=== PATIENT | female | born 1960 | race Caucasian/White ===

== ENCOUNTER 2019-03-04 16:21 | Emergency (ER) | payer MEDICAID, OTHER ==
--- NOTE | 2019-03-04 16:37 | ER Document Report ---
ED Medical Screen (RME) - General Chief Complaint: Leg Pain Stated Complaint: RIGHT LEG PAIN AND SWELLING Time Seen by Provider: 03/04/19 16:25 Primary Care Provider: IGOR ALEMAN [Primary Care Provider] - Follow up as needed Mode of Arrival: Wheelchair Information source: Patient Notes: 58-year-old diabetic female with history of phlebitis presents emergency department with right lower leg erythema and pain with discoloration to her right great toe. She reports pain to the leg but cannot feel her toe. Reports symptoms for possibly 2 weeks her and her are debating. Denies fever vomiting diarrhea. Right toes are cooler than left foot discoloration. I have greeted and performed a rapid initial assessment of this patient. A comprehensive ED assessment and evaluation of the patient, analysis of test results and completion of the medical decision making process will be conducted by additional ED providers. Dictation of this chart was performed using voice recognition software; therefore, there may be some unintended grammatical errors. TRAVEL OUTSIDE OF THE [place] IN LAST 30 DAYS: No - Related Data Allergies/Adverse Reactions: adhesive [Adhesive] Allergy (Mild, Verified 03/04/19 16:26) rash Past Medical History Neurological Medical History: Denies: Hx Seizures Endocrine Medical History: Reports: Hx Diabetes Mellitus Type 2 GI Medical History: Reports: Hx Gastroesophageal Reflux Disease Past Surgical History: Denies: Hx Hysterectomy - Immunizations Hx Diphtheria, Pertussis, Tetanus Vaccination: No Doctor's Discharge - Discharge Referrals: IGOR ALEMAN [Primary Care Provider] - Follow up as needed
[2019-03-04 17:15] LABS: ALBUMIN 3.8 g/dL (3.5-5.0); ALKALINE PHOSPHATASE 119 U/L (38-126); ANION GAP 14 (5-19); ASPARTATE AMINO TRANSFERASE 32 U/L (14-36); BILIRUBIN,DIRECT 0.2 mg/dL (0.0-0.4); BILIRUBIN,TOTAL 0.4 mg/dL (0.2-1.3); BLOOD UREA NITROGEN 18 mg/dL (7-20); CALCIUM 9.5 mg/dL (8.4-10.2); CARBON DIOXIDE 24 mmol/L (22-30); CHLORIDE 100 mmol/L (98-107); GLUCOSE 229 mg/dL (75-110); POTASSIUM 4.4 mmol/L (3.6-5.0); TOTAL PROTEIN 7.1 g/dL (6.3-8.2)
[2019-03-04 17:22] LABS: HEMATOCRIT 45.4 % (36.0-47.0); HEMOGLOBIN 15.3 g/dL (12.0-15.5); MEAN CORPUSCULAR HEMOGLOBIN 29.7 pg (27.0-33.4); MEAN CORPUSCULAR HGB CONC 33.6 g/dL (32.0-36.0); MEAN CORPUSCULAR VOLUME 88 fl (80-97); PLATELET COUNT 345 10^3/uL (150-450); RED BLOOD COUNT 5.14 10^6/uL (3.72-5.28); RED CELL DISTRIBUTION WIDTH 14.7 % (11.5-14.0); WHITE BLOOD COUNT 25.6 10^3/uL (4.0-10.5)
[2019-03-04 17:45] LABS: ABSOLUTE LYMPHOCYTES# (MANUAL) 4.4 10^3/uL (0.5-4.7); ABSOLUTE MONOCYTES # (MANUAL) 0.5 10^3/uL (0.1-1.4); BASOPHILS % (MANUAL) 0 % (0-2); EOSINOPHILS % (MANUAL) 2 % (0-6); LYMPHOCYTES % (MANUAL) 17 % (13-45); MONOCYTES % (MANUAL) 2 % (3-13); SEGMENTED NEUTROPHILS % (MAN) 79 % (42-78); TOTAL CELLS COUNTED 100
[2019-03-04 17:46] LABS: ANISOCYTOSIS SLIGHT; PLATELET COMMENT ADEQUATE; TOXIC GRANULATION 1+
[2019-03-04] MEDS ORDERED: ACETAMINOPHEN WITH CODEINE #3 TABLET PO ONE (18:01)
--- NOTE | 2019-03-04 18:16 | RADIOLOGY REPORT (SQ) ---
EXAM DESCRIPTION: FOOT RIGHT COMPLETE COMPLETED DATE/TIME: 03/04/2019 5:56 pm REASON FOR STUDY: pain discoloration hx dm COMPARISON: None. EXAM PARAMETERS: NUMBER OF VIEWS: Three views. TECHNIQUE: AP, lateral and oblique radiographic images acquired of the right foot. LIMITATIONS: None. FINDINGS: MINERALIZATION: Normal. BONES: No acute fracture or dislocation. No worrisome bone lesions. JOINTS: No effusion. SOFT TISSUES: Mild soft tissue swelling. No radiopaque foreign body. OTHER: No other significant finding. IMPRESSION: NO FRACTURE. TECHNICAL DOCUMENTATION: JOB ID: [id number] [place]-72 2010 [employer]- All Rights Reserved Reading location - IP/workstation name: I Had Cancer
--- NOTE | 2019-03-04 18:35 | XCELERA REPORT ---
[address] [address] Lower Extremity Arterial Evaluation Name: JONNATHAN NAJERA Age: 58 yrs Gender: Female : 1960 Patient Status: Emergency Patient Location: ER Study Date: 03/04/2019 05:22 PM Procedure: A color flow and duplex scan of the lower extremity arteries was performed on the right with velocity and waveform anaylsis. Reason For Study: discoloration to right great toe Ordering Physician: HAILY FAGAN Performed By: Sammie May Measurements and Calculations Right Left STRUCTURAL ENGINEERING TECHNICIAN PSV 121.9 cm/sec Prox PFA PSV -100.7 cm/sec Prox SFA PSV 116.9 cm/sec Mid SFA PSV -127.8 cm/sec Dist SFA PSV -57.8 cm/sec Prox Pop A PSV 45.0 cm/sec Prox ARTIE PSV 48.8 cm/sec Dist ARTIE PSV 23.1 75.5 cm/sec Dist SUBMARINE OPERATOR PSV 18.6 cm/sec Raji Pedis PSV -14.6 -29.4 cm/sec Right Side Arterial Evaluation Normal velocity and triphasic waveforms noted from the Common Femoral artery to Femoral . Biphasic with normal velocity in the Popliteal. Minimal flow, low velocity, spectrally broadened findings in the anterior and Posterior Tibial distally. Occluded Peroneal artery. Ankle Brachial index not obtained. Left Side Arterial Evaluation Biphasic signal with low normal velocity in the Anterior Tibial. Very limited, "spot" study. Critical Findings Severe right leg arterial disease discussed with Dr Chen. Interpretation Summary Severe hemodynamically significant lesions in the right lower extremity only, on duplex imaging, at rest. Findings compatible with tissue threatening disease. On the left, very limited study suggestion of moderate disease. : HAILY FAGAN > Marquise Pryor
--- NOTE | 2019-03-04 18:36 | XCELERA REPORT ---
[address] [place] [facility] [address] Lower Extremity Venous Evaluation Procedure: Color flow and duplex imaging of the veins of the right lower extremity as well as the left Common Femoral vein. Right Sided Venous Evaluation Normal vessel filling wall to wall, compression and augmentation as well as Colour flow down to the infrageniculate veins. Left Sided Venous Evaluation The left common femoral vein is fully compressible. Spontaneous and phasic flow is present in the left common femoral vein. Interpretation Summary No duplex evidence of DVT or obstruction in the right lower extremity nor in the left Common Femoral vein. Name: JONNATHAN NAJERA Age: 58 yrs Gender: Female : 1960 Patient Status: Emergency Patient Location: ER Study Date: 03/04/2019 05:08 PM Reason For Study: erythema pain discoloration to right LL, Toe Ordering Physician: HAILY FAGAN Performed By: Sammie May : HAILY FAGAN > Marquise Pryor
--- NOTE | 2019-03-04 18:37 | ER Document Report ---
Entered by ANIKET IRVIN SCRIBE 03/04/19 1741 Acting as scribe for:ERICA BARTHOLOMEW IV, MD ED General - General Chief Complaint: Foot Pain Stated Complaint: RIGHT LEG PAIN AND SWELLING Time Seen by Provider: 03/04/19 16:25 Primary Care Provider: [facility] IGOR LI [NO LOCAL MD] - Follow up as needed Mode of Arrival: Wheelchair Information source: Patient Notes: This 58-year-old female patient presents to the emergency department today with complaints of right foot discoloration. Patient has known diabetes as well as peripheral vascular disease. Patient states that for about the last week she has noticed that her right foot seems to be more of a blue/purple color. Patient states that she has had decreased sensation in the right foot for the last week as well as numb toes. TRAVEL OUTSIDE OF THE [place] IN LAST 30 DAYS: No - Related Data Allergies/Adverse Reactions: adhesive [Adhesive] Allergy (Mild, Verified 03/04/19 16:26) rash Past Medical History - General Information source: Patient - Social History Smoking Status: Current Every Day Smoker Cigarette use (# per day): Yes Chew tobacco use (# tins/day): No Frequency of alcohol use: None Drug Abuse: None Lives with: Family Family History: Reviewed & Not Pertinent Patient has suicidal ideation: No Patient has homicidal ideation: No - Past Medical History Cardiac Medical History: Reports: Hx Peripheral Vascular Disease Endocrine Medical History: Reports: Hx Diabetes Mellitus Type 2 GI Medical History: Reports: Hx Gastroesophageal Reflux Disease Past Surgical History: Denies: Hx Hysterectomy - Immunizations Hx Diphtheria, Pertussis, Tetanus Vaccination: No Hx Pneumococcal Vaccination: 01/03/13 Review of Systems - Review of Systems Constitutional: No symptoms reported EENT: No symptoms reported Cardiovascular: No symptoms reported Respiratory: No symptoms reported Gastrointestinal: No symptoms reported Genitourinary: No symptoms reported Female Genitourinary: No symptoms reported Musculoskeletal: No symptoms reported Skin: No symptoms reported Hematologic/Lymphatic: No symptoms reported Neurological/Psychological: See HPI, Numbness, Tingling -: Yes All other systems reviewed and negative Physical Exam - Vital signs Vitals: Temp Pulse Resp BP Pulse Ox 98.1 F 118 H 16 138/72 H 97 03/04/19 16:26 03/04/19 16:26 03/04/19 16:26 03/04/19 16:26 03/04/19 16:26 - Notes Notes: Physical Exam: General: Alert, appears uncomfortable. HEENT: Normocephalic. Atraumatic. PERRL. Extraocular movements intact. Oropharynx clear. Neck: Supple. Non-tender. Respiratory: No respiratory distress. Clear and equal breath sounds bilaterally. Cardiovascular: Regular rate and rhythm. Abdominal: Normal Inspection. Non-tender. No distension. Normal Bowel Sounds. Back: No gross abnormalities. Extremities: Moves all four extremities. Upper extremities: Normal inspection. Normal ROM. Lower extremities: Right foot is tender to even light palpation. The foot is cool and blue in appearance. Capillary refill greater than 3 seconds distally. LLE is grossly unremarkable. Neurological: Normal cognition. AAOx4. Normal speech. Psychological: Normal affect. Normal Mood. Skin: See lower extremity exam Course - Re-evaluation Re-evalutation: 03/04/19 19:[address] Carpio, vascular surgeon at [facility]. He accepted the patient for transfer to his facility. He asked that the patient be given 150 mg of Plavix, 325 mg aspirin, and be started on a heparin drip. - Vital Signs Vital signs: Temp Pulse Resp BP Pulse Ox 98.1 F 118 H 16 138/72 H 97 03/04/19 16:26 03/04/19 16:26 03/04/19 16:26 03/04/19 16:26 03/04/19 16:26 - Laboratory Result Diagrams: 03/04/19 16:47 03/04/19 16:47 Laboratory results interpreted by me: 03/04/19 03/04/19 16:47 16:47 WBC 25.6 H RDW 14.7 H Seg Neuts % (Manual) 79 H Monocytes % (Manual) 2 L Abs Neuts (Manual) 20.2 H Glucose 229 H - Consults DR. CARPIO Time consulted: 19:15 Reason for consultation: 03/04/19 19:20 OCCLUDED RIGHT POPLITEAL ARTERY Discharge - Discharge Clinical Impression: Right popliteal artery occlusion Condition: Fair Disposition: [facility] [NO LOCAL MD] - Follow up as needed I personally performed the services described in the documentation, reviewed and edited the documentation which was dictated to the scribe in my presence, and it accurately records my words and actions.
[2019-03-04] MEDS ORDERED: ASPIRIN 325 MG TABLET PO ONE (19:10)
[2019-03-04] MEDS ORDERED: CLOPIDOGREL BISULFATE 300 MG TABLET PO ONE (19:10)
[2019-03-04] MEDS ORDERED: HEPARIN SOD (PORCINE) 1,000 UNIT/ML 10 ML VIAL IV ONE (19:11)
[2019-03-04] MEDS ORDERED: HEPARIN SODIUM,PORCINE/D5W 25,000 UNIT/250 ML RTUINJ IV PRN (19:15)
[2019-03-04] MEDS ORDERED: LORAZEPAM INJ 2 MG/1 ML VIAL IV ONE (19:58)
[2019-03-04 20:07] VITALS: BP 131/80
[2019-03-04 20:10] LABS: INTERNATIONAL RATION (INR) 1.05; PROTHROMBIN TIME 13.7 SEC (11.4-15.4)
[2019-03-04 20:11] LABS: PARTIAL THROMBOPLASTIN TIME 30.9 SEC (23.5-35.8)
== END 2019-03-04 20:15 | disposition short-term general hospital (02) ==
LOC: ER 16:21
DX: I77.1 Stricture of artery (principal); I73.9 Peripheral vascular disease, unspecified; M79.671 Pain in right foot; M79.89 Other specified soft tissue disorders; E11.9 Type 2 diabetes mellitus without complications; F17.210 Nicotine dependence, cigarettes, uncomplicated
CPT/HCPCS: 99285; 96374; 36415; 85025; 85610; 85730; 80053; 83605; 93971 ×2; 93926 ×2; 73630; J3490; J1644 ×2; J2060

== ENCOUNTER 2019-11-13 06:29 | Day surgery (SDC) | payer MEDICAID ==
[~2019-11-13 06:29] MED LIST: BUPIVACAINE HCL 0.75% INJ/PF (7.5 MG/1 ML) 10 ML SDV OS PRN; KETOROLAC TROMETHAMINE 0.45% 4 DROP/0.4 ML DROPERETTE OS PRN; LIDOCAINE 4% INJ/PF (40 MG/ML) 5 ML AMPUL OS PRN
[2019-11-13] MEDS ORDERED: FENTANYL CITRATE INJ/PF 100 MCG/2 ML AMPUL ONE (06:43)
[2019-11-13] MEDS ORDERED: MIDAZOLAM 2 MG/2 ML INJ ONE (06:43)
[2019-11-13] MEDS ORDERED: LIDOCAINE 1% INJ-PF (10 MG/ML) 30 ML SDV ONE (06:54)
[2019-11-13] MEDS ORDERED: CHONDR SU A NA/HYALUR INTRAOC KIT (SURGICARE) ONE (06:54)
[2019-11-13] MEDS ORDERED: EPINEPHRINE INJ/PF 1 MG/1 ML AMPULE ONE (06:54)
[2019-11-13] MEDS: TETRACAINE HCL 0.5% OPH SOLN 4 ML OS PRN ×2 (06:58→07:11)
[2019-11-13] MEDS: CYCLOPENTOLATE 0.2%/PHENYLEPHRINE 1% OPH SOLN 2 ML OS PRN ×3 (06:58→07:10)
[2019-11-13] MEDS: BESIFLOXACIN HCL 0.6% OPH SUSP 5 ML BOTTLE OS PRN ×4 (06:59→07:58)
[2019-11-13] MEDS: TROPICAMIDE 1% OPH SOLN 15 ML OS PRN ×3 (06:59→07:10)
[2019-11-13] MEDS: DORZOLAMIDE HCL 2%/TIMOLOL MALEAT 0.5% OPH SOLN 10 ML OS PRN ×2 (07:58)
--- NOTE | 2019-11-13 11:18 | Operative Report ---
Operative Report-[facility] Operative Report: DATE OF SURGERY: 11/13/2019 PREOPERATIVE DIAGNOSIS: CATARACT, LEFT EYE. POSTOPERATIVE DIAGNOSIS: CATARACT, LEFT EYE. PROCEDURE PERFORMED: PHACOEMULSIFICATION WITH POSTERIOR CHAMBER INTRAOCULAR LENS, LEFT EYE. Intraocular Lens Model : ZCBOO 23.0 Total Phaco Time: 3.6 CDE SURGEON: ALAINA ROSE MD ANESTHESIA: TOPICAL WITH MAC. INDICATIONS FOR SURGERY: Difficultly driving at night PROCEDURE: The patient was brought to the Operating Room and placed on the operative table. Following tetracaine drops, topical anesthesia was administered. This consisted of instrument wipe pledgets soaked in a solution of 4% Xylocaine mixed with 0.75% Marcaine in a 1:2 ratio. A 2 x 1 cm pledget was placed in the superior fornix. A 1 x 1 cm pledget was placed in the inferior fornix. The eye was patched shut for 5 minutes. The patch was removed. The eye was sterilely prepped and draped in the usual manner. Lid speculum was placed in the eye. The pledgets were removed. 4-0 black silk sutures were placed around the superior and the inferior rectus muscles to be used as traction. A conjunctival peritomy was made at the 10 o'clock position. Hemostasis was obtained with bipolar cautery. A posterior limbal groove was created using a crescent knife and dissected anteriorly towards the cornea. A sharp point blade was used to create a paracentesis site at the 2 o'clock position. 0.2 cc non preserved Lidocaine was injected into the anterior chamber. A 2.4 mm keratome was used to enter the anterior chamber through the groove. Viscoelastic was injected into the anterior chamber. An anterior capsulotomy was performed using Utrata forceps in a capsulorrhexis fashion. Hydrodissection and hydrodelineation were performed. Phacoemulsification was performed in [id number] technique. Following this, the I/A unit was used to remove residual cortex. Viscoelastic was injected into the capsular bag. The Intraocular lens was placed in the capsular bag. The I/A unit was used to remove residual viscoelastic. The wound was seen to be watertight under high and low pressure, and no sutures were placed. The intraocular lens was well centered. The pressure was adjusted in the eye to normal pressure. The 4-0 black silk sutures and lid speculum were removed. The eye was shielded after Besivance,prednisolone, and Cosopt drops were placed. The patient tolerated the procedure well and was sent to the Recovery Room in good condition.
== END 2019-11-13 08:44 | disposition home or self-care (01) ==
LOC: SC 06:29
PROVIDERS: ATTEND Ophthalmology
DX: H25.813 Combined forms of age-related cataract, bilateral (principal); H40.033 Anatomical narrow angle, bilateral; H04.123 Dry eye syndrome of bilateral lacrimal glands; E11.9 Type 2 diabetes mellitus without complications; Z79.4 Long term (current) use of insulin; Z79.84 Long term (current) use of oral hypoglycemic drugs; Z79.01 Long term (current) use of anticoagulants; E78.00 Pure hypercholesterolemia, unspecified; Z87.891 Personal history of nicotine dependence; Z79.82 Long term (current) use of aspirin
CPT/HCPCS: 66984; 82962; V2632; J2250; J3490 ×6; J0171; J3010; 142

== ENCOUNTER 2019-12-04 08:42 | Day surgery (SDC) | payer MEDICAID ==
[~2019-12-04 08:42] MED LIST changes: +BUPIVACAINE HCL 0.75% INJ/PF (7.5 MG/1 ML) 10 ML SDV OD PRN; -BUPIVACAINE HCL 0.75% INJ/PF (7.5 MG/1 ML) 10 ML SDV OS PRN; +CHONDR SU A NA/HYALUR INTRAOC KIT (SURGICARE) ONE; +EPINEPHRINE INJ/PF 1 MG/1 ML AMPULE ONE; +KETOROLAC TROMETHAMINE 0.45% 4 DROP/0.4 ML DROPERETTE OD PRN; -KETOROLAC TROMETHAMINE 0.45% 4 DROP/0.4 ML DROPERETTE OS PRN; +LIDOCAINE 1% INJ-PF (10 MG/ML) 30 ML SDV ONE; +LIDOCAINE 4% INJ/PF (40 MG/ML) 5 ML AMPUL OD PRN; -LIDOCAINE 4% INJ/PF (40 MG/ML) 5 ML AMPUL OS PRN
[2019-12-04] MEDS: BESIFLOXACIN HCL 0.6% OPH SUSP 5 ML BOTTLE OD PRN ×4 (09:10→10:18)
[2019-12-04] MEDS: TETRACAINE HCL 0.5% OPH SOLN 4 ML OD PRN ×3 (09:10→09:47)
[2019-12-04] MEDS: CYCLOPENTOLATE 0.2%/PHENYLEPHRINE 1% OPH SOLN 2 ML OD PRN ×3 (09:10→09:30)
[2019-12-04] MEDS: TROPICAMIDE 1% OPH SOLN 15 ML OD PRN ×3 (09:10→09:30)
[2019-12-04] MEDS ORDERED: FENTANYL CITRATE INJ/PF 100 MCG/2 ML AMPUL ONE (09:30)
[2019-12-04] MEDS ORDERED: MIDAZOLAM 2 MG/2 ML INJ ONE (09:30)
[2019-12-04] MEDS ORDERED: ALBUTEROL SULFATE 0.083% NEB 2.5 MG/3 ML AMPUL NEB ONE (09:34)
[2019-12-04] MEDS ORDERED: METHYLPREDNISOLONE INJ 125 MG/2 ML SDV ONE (10:03)
[2019-12-04] MEDS: DORZOLAMIDE HCL 2%/TIMOLOL MALEAT 0.5% OPH SOLN 10 ML OD PRN ×2 (10:18)
[2019-12-04] MEDS: PREDNISOLONE ACETATE 1% OPH SUSP 5 ML OD PRN ×2 (10:18)
--- NOTE | 2019-12-04 14:05 | Operative Report ---
Operative Report-[facility] Operative Report: DATE OF SURGERY: 12/04/2019 PREOPERATIVE DIAGNOSIS: CATARACT, RIGHT EYE. POSTOPERATIVE DIAGNOSIS: CATARACT, RIGHT EYE. PROCEDURE PERFORMED: PHACOEMULSIFICATION WITH POSTERIOR CHAMBER INTRAOCULAR LENS, RIGHT EYE. Intraocular Lens Model : ZCBOO 22.5 Total Phaco Time: 2.93 CDE SURGEON: ALAINA ROSE MD ANESTHESIA: TOPICAL WITH MAC. INDICATIONS FOR SURGERY: Difficulty driving at night. PROCEDURE: The patient was brought to the Operating Room and placed on the operative table. Following tetracaine drops, topical anesthesia was administered. This consisted of instrument wipe pledgets soaked in a solution of 4% Xylocaine mixed with 0.75% Marcaine in a 1:2 ratio. A 2 x 1 cm pledget was placed in the superior fornix. A 1 x 1 cm pledget was placed in the inferior fornix. The eye was patched shut for 5 minutes. The patch was removed. The eye was sterilely prepped and draped in the usual manner. Lid speculum was placed in the eye. The pledgets were removed. 4-0 black silk sutures were placed around the superior and the inferior rectus muscles to be used as traction. A conjunctival peritomy was made at the 10 o'clock position. Hemostasis was obtained with bipolar cautery. A posterior limbal groove was created using a crescent knife and dissected anteriorly towards the cornea. A sharp point blade was used to create a paracentesis site at the 2 o'clock position. 0.2 cc non preserved Lidocaine was injected into the anterior chamber. A 2.4 mm keratome was used to enter the anterior chamber through the groove. Viscoelastic was injected into the anterior chamber. An anterior capsulotomy was performed using Utrata forceps in a capsulorrhexis fashion. Hydrodissection and hydrodelineation were performed. Phacoemulsification was performed in [id number] technique. Following this, the I/A unit was used to remove residual cortex. Viscoelastic was injected into the capsular bag. The Intraocular lens was placed in the capsular bag. The I/A unit was used to remove residual viscoelastic. The wound was seen to be watertight under high and low pressure, and no sutures were placed. The intraocular lens was well centered. The pressure was adjusted in the eye to normal pressure. The 4-0 black silk sutures and lid speculum were removed. The eye was shielded after Besivance. prednisolone, and Cosopt drops were placed. The patient tolerated the procedure well and was sent to the Recovery Room in good condition.
== END 2019-12-04 11:06 | disposition home or self-care (01) ==
LOC: SC 08:42
PROVIDERS: ATTEND Ophthalmology
DX: H25.811 Combined forms of age-related cataract, right eye (principal); Z96.1 Presence of intraocular lens; H40.033 Anatomical narrow angle, bilateral; E11.9 Type 2 diabetes mellitus without complications; E78.00 Pure hypercholesterolemia, unspecified; M19.90 Unspecified osteoarthritis, unspecified site; Z87.891 Personal history of nicotine dependence; Z79.4 Long term (current) use of insulin; Z79.899 Other long term (current) drug therapy; Z80.9 Family history of malignant neoplasm, unspecified; K21.9 Gastro-esophageal reflux disease without esophagitis; I82.401 Acute embolism and thrombosis of unspecified deep veins of right lower extremity; Z79.02 Long term (current) use of antithrombotics/antiplatelets
CPT/HCPCS: 66984; 82962; 00142; V2632; J2250; J3490 ×6; J0171; J3010; J2930; J7613; 142